=== PATIENT | female | born 1950 | race Hispanic/Latino ===

== ENCOUNTER 2019-04-04 13:01 | Emergency (ER) | payer BC ==
[2019-04-04] MEDS ORDERED: Amoxicillin 250 mg/5 ml Susp (100 ml) PO STA (15:44)
--- NOTE | 2019-04-04 15:56 | ED PDOC ---
HPI: General Adult Time Seen by Provider: 04/04/19 15:13 Chief Complaint (Nursing): ENT Problem Chief Complaint (Provider): Throat Pain History Per: Patient History/Exam Limitations: no limitations Onset/Duration Of Symptoms: Days (x4), Worse Since (x3 days ago) Current Symptoms Are (Timing): Still Present Additional Complaint(s): 68 year old female presents to the ED for evaluation of throat pain radiating to her ears starting four nights ago and worsening the next morning. Patient notes multiple sick contacts including her glpcaxot-dx-bil with strep, and her gran paraghildren with colds. She also reports an associated headache and tactile fever which she has been treating with Tylenol, last dose 0700 this morning. Denies other complaints, including but not limited to cough, N/V/D, chest pain, abdominal pain, recent travel, visual changes, dizziness. Past Medical History Reviewed: Historical Data, Nursing Documentation, Vital Signs Vital Signs: Last Vital Signs Temp 98.4 F 04/04/19 14:17 Pulse 108 H 04/04/19 14:17 Resp 16 04/04/19 14:17 BP 148/74 04/04/19 14:17 Pulse Ox 96 04/04/19 14:17 Primary Care Provider: Apolinar Gonzales - Medical History PMH: No Chronic Diseases - Surgical History Other surgeries: hysterectomy - Family History Family History: States: Unknown Family Hx - Home Medications Home Medications: Ambulatory Orders Medication Instructions Recorded Acetaminophen 20.3 ml PO Q6 PRN #500 ml 04/04/19 Amoxicillin 11 ml PO BID #154 ml 04/04/19 Ibuprofen 30 ml PO Q6 PRN #500 ml 04/04/19 - Allergies Allergies/Adverse Reactions: Allergies Allergy/AdvReac Type Severity Reaction Status Date / Time No Known Allergies Allergy Verified 04/04/19 14:19 Review of Systems ROS Statement: Except As Marked, All Systems Reviewed And Found Negative Constitutional: Positive for: Fever (tactile) ENT: Positive for: Throat Pain (radiating to ears) Physical Exam - Reviewed Nursing Documentation Reviewed: Yes Vital Signs Reviewed: Yes - Physical Exam Comments: GENERAL APPEARANCE: Patient is awake, alert, oriented x 3, in no acute distress. Resting comfortably. SKIN: Warm, dry; (-) cyanosis. EYES: (-) conjunctival injection ENMT: Bilateral TMs: (-) bulging, (-) erythema. Bilateral ear canals: patent, (-) exudate, (-) erythema (-) vesicles (-) cerumen impaction. Pharynx: uvula midline, (+) bilateral tonsilar hypertrophy 2+ and erythema, (+) right sided exudate. (-) sinus tenderness NECK: Full ROM, Supple (-) tenderness (-) nuchal rigidity (-) lymphadenopathy CHEST AND RESPIRATORY: (-) rhonchi, (-) rales, (-) wheezes; breath sounds equal bilaterally. Respirations even and nonlabored, speaking in full sentences. HEART AND CARDIOVASCULAR: RRR, (-) irregularity ABDOMEN AND GI: Soft; (-) tenderness. NEURO AND PSYCH: Mental status as above. Gait: steady. Speech: clear. (-) facial asymmetry (-) aphasia. Normal cognition. - ECG O2 Sat by Pulse Oximetry: 96 (RA) Pulse Ox Interpretation: Normal Medical Decision Making Medical Decision Making: Initial Impression: pharyngitis, tonsillitis Time: 1545 Initial Plan: --Rapid strep --Throat culture --Ibuprofen 600mg PO --Amoxicillin 500mg PO --Reevaluation 1630 Rapid strep: positive Repeat HR: 81 On re-evaluation, patient reports improvement of symptoms. On exam, patient remains AAOx3, in no acute distress. Vitals stable. Lab/Diagnostic results d/w the patient in great detail. Diagnosis of strep pharyngitis/tonsillitis, throat pain d/w the patient. Based on history, exam and diagnostic results, plan will be for outpatient follow up with PMD. Patient instructed to follow-up with pmd / referral provided / the clinic in 1- 2 days without fail. Advised to take medication as prescribed. Return to the emergency room at any time for any new or worsening symptoms. Patient states she fully agrees with and understands discharge instructions. States that she agrees with the plan and disposition. Verbalized and repeated discharge instructions and plan. I have given the patient opportunity to ask any additional questions. Scribe Attestation: Documented by Katy Tobias, acting as a scribe for Amber Gramajo PA-C. Provider Scribe Attestation: All medical record entries made by the Scribe were at my direction and personally dictated by me. I have reviewed the chart and agree that the record accurately reflects my personal performance of the history, physical exam, medical decision making, and the department course for this patient. I have also personally directed, reviewed, and agree with the discharge instructions and disposition. Disposition - Clinical Impression Clinical Impression: Throat pain in adult, Strep pharyngitis, Tonsillitis - Patient ED Disposition Is Patient to be Admitted: No Counseled Patient/Family Regarding: Studies Performed, Diagnosis, Need For Followup, Rx Given - Disposition Referrals: primary, doctor [Other] Disposition: Routine/Home Disposition Time: 16:30 Condition: STABLE Additional Instructions: The emergency medical care you received today was directed at your acute symptoms. If you were prescribed any medication, please fill it and take as directed. It may take several days for your symptoms to resolve. Return to the Emergency Department if your symptoms worsen, do not improve, or if you have any other problems. Please contact your doctor in 2 days for re-evaluation and follow up / or call one of the physicians/clinics you have been referred to that are listed on the Patient Visit Information form that is included in your discharge packet. Bring any paperwork you were given at discharge with you along with any medications you are taking to your follow up visit. Our treatment cannot replace ongoing medical care by a primary care provider (PCP) outside of the emergency department. Prescriptions: Acetaminophen 20.3 ml PO Q6 PRN #500 ml PRN Reason: pain/fever Amoxicillin 11 ml PO BID #154 ml Ibuprofen 30 ml PO Q6 PRN #500 ml PRN Reason: pain/fever Instructions: Sore Throat in Adults, Strep Throat (DC) Forms: [employer] ([place]) Print Language: SPANISH - POA Present On Arrival: None Results - Lab Results Lab Results: 04/04/19 15:20 Grp A Beta Strep Ag Positive H
[2019-04-04 17:00] VITALS: BP 145/76; PULSE 81; RESP 18; TEMP 98.6
[2019-04-04 17:01] VITALS: O2SAT 96
== END 2019-04-04 17:33 | disposition home or self-care (01) ==
LOC: H.ER 13:01
DX: J03.90 Acute tonsillitis, unspecified (principal); J02.0 Streptococcal pharyngitis; Z90.710 Acquired absence of both cervix and uterus